=== PATIENT | male | born 1980 | race Caucasian/White ===

== ENCOUNTER 2022-11-05 16:24 | Emergency (ER) | payer BC, MEDICAID ==
[~2022-11-05] VITALS: Ht 172.7 cm; Wt 90.9 kg
[~2022-11-05 16:24] MED LIST: ALBU8.5H17 IH
[2022-11-05 16:33] VITALS: BP 143/96
[2022-11-05] MEDS ORDERED: PENI500T2 PO (18:04)
== END 2022-11-05 18:46 | disposition home or self-care (01) ==
LOC: ER 16:24
DX: K04.7 Periapical abscess without sinus (principal); Z86.73 Personal history of transient ischemic attack (TIA), and cerebral infarction without residual deficits; Z98.890 Other specified postprocedural states; Z88.5 Allergy status to narcotic agent; Z88.8 Allergy status to other drugs, medicaments and biological substances; Z79.899 Other long term (current) drug therapy
CPT/HCPCS: 99283